=== PATIENT | female | born 1990 | race Caucasian/White ===

== ENCOUNTER 2025-06-05 13:07 | Outpatient (AMB) | payer BC, SELFPAY ==
--- NOTE | 2025-06-05 13:09 | MHC.OFFVIS ---
Vital Signs 06/05/25 13:13 Height 5 ft 1 in Weight 173 lb 6 oz BMI 32.8 BP 131/86 Blood Pressure Location Rt brachial Position Sitting Pulse 81 Pulse Source Pulse Oximeter Pulse Oximetry (%) 97 Oxygen Delivery Method Room Air Intake Visit Reasons: RIGHT HIP PAIN/BURSA Intake Note: Pain today 10/25 Colors Custodian Required: No Accompanied by: Spouse Allergies latex (LATEX) Allergy (Unknown, Verified 06/05/25 13:14) HIVES Sulfa (Sulfonamide Antibiotics) (SULFA (SULFONAMIDE ANTIBIOTICS)) Allergy (Unknown, Verified 06/05/25 13:14) NAUSEA/FATIGUE HPI Comments Details: The patient is a 34-year-old female presenting with chronic pelvic pain, which she localizes to the right lower quadrant and groin. The pain has been present since an emergency section in 2022. In January of this year, the patient underwent a diagnostic laparoscopy, during which a lesion was found and removed from her iliacus muscle. Pathology confirmed the lesion was endometriosis. The patient reports the surgery did not help her pain. The patient has been receiving ultrasound-guided steroid injections at [facility] for this pain. Her last injection was in November and provided relief for about a month and a half. She completed CT scans at [facility] [place] [facility] and US with [facility], these reports are not available for review today. Patient completed physical therapy, chiropractic manipulation, massage therapy, acupuncture, topical cannabis cream and TENS unit with mild to no pain relief. She is seeking a new provider due to PTSD triggers associated with the previous facility and difficulties with scheduling. Her medical history is significant for asthma, depression, fibromyalgia, PTSD from her and prior trauma, and POTS, which is managed by her PCP Current medications include desvenlafaxine and metoprolol. She is not currently or . Pain Description - Onset: The pain began in 2022 after an emergency . - Location: The pain is located in the right lower quadrant, described as superficial, and is in the groin and pelvic area but higher up. - Quality: The patient reports occasional burning pain. - Exacerbating Factors: Pain worsens when bending her torso over, during bowel movements, when feeling the need to have a bowel movement, and during her menses. - Associated Symptoms: The patient experiences occasional numbness and tingling when stretching or bending down. - Impact on Function: The pain affects her ability to perform activities such as carrying groceries. Pain Management - Analgesia: The patient has received steroid injections at [facility], with the last one in November providing relief for approximately 1.5 months. - Affect: The patient reports PTSD as a trigger related to a prior facility. - Activities of Daily Living: The pain interferes with her ability to carry groceries. - Adverse Effects: Not discussed. - Aberrant Drug Related Behaviors: None reported. [facility] Medical History (Updated 06/05/25 @ 14:13 by HENOK Hernández) Endometriosis Right hip pain POTS (postural orthostatic tachycardia syndrome) Fibromyalgia Depression Asthma Surgical History (Updated 06/05/25 @ 14:22 by HENOK Hernández) History of laparoscopy (~01/2025) H/O emergency section (~12/2022) Social History Alcohol intake: current Alcohol intake frequency: a few times a month Patient Tobacco Use Status: Never used Tobacco Substance Use Type: Marijuana Review of Systems Narrative - General: Reports fibromyalgia. - Musculoskeletal: Reports superficial pain in the right lower quadrant and pelvic region and non-severe upper back pain; denies pain in the hip joint with rotation or on the side of the hip. - Neurological: Reports occasional burning, numbness, or tingling, primarily with stretching or bending. - Gastrointestinal: Reports pain is worse with bowel movements and when feeling the urge for a bowel movement. - Genitourinary: Reports pain is worse during menses; denies being . - Psychiatric: Reports a history of depression and PTSD. - Cardiovascular: Reports POTS. Const All systems reviewed & are unremarkable except as noted in HPI and below Physical Exam Vital Signs: Last Vital Signs Pulse 81 06/05/25 13:13 BP 131/86 06/05/25 13:13 Pulse Ox 97 06/05/25 13:13 Oxygen Delivery Method Room Air 06/05/25 13:13 BMI result Body Mass Index 32.8 General: Appears afebrile. Alert and oriented. Mood and affect appropriate. Follows and participates in conversation appropriately. Respiratory effort is unlabored. No cough. Able to transition from sit to stand unassisted. Ambulates with bilaterally normal heel strike and toe off. GI Other: External hip rotation reproduces right pelvic area pain. No TTP in bilateral GTB areas. Wilber's test reproduces RLQ pain, not hip or low back or buttock pain. Inspection: Yes normal to inspection, No abdominal wall ecchymosis, No distended, Yes obesity, Yes scar and No visible herniation Palpation (GI): Soft to palpation, Tenderness to palpation present (GI) in the RLQ and No Carnett's sign positive Assessment & Plan Assessment & Plan (1) Right-sided pelvic pain: Code(s): R10.21 - Pelvic and perineal pain right side Category: Medical (2) Fibromyalgia: Code(s): M79.7 - Fibromyalgia Category: Medical (3) Chronic pain syndrome: Code(s): G89.4 - Chronic pain syndrome Category: Medical Plan Medical records and all imaging from [facility] will be requested and reviewed to gain a complete understanding of her condition and prior treatments. The patient will be contacted after the records have been reviewed. Discussed interventional pain management for chronic right hip and and right lower quadrant pain, including diagnostic vs therapeutic US guided injections. All questions and concerns have been answered and patient agreed with the treatment plan. Follow up for [facility] records/imaging review/procedure discussion and sooner as needed. Patient was informed and verbally consented to the use of an ambient scribe for clinic note documentation during this visit. Coding Level of Care Code New Pt Level 4 (80005) Diagnoses Right-sided pelvic pain R10.21 Fibromyalgia M79.7 Chronic pain syndrome G89.4
[2025-06-05 13:13] VITALS: BP 131/86; PULSE 81; O2SAT 97; BMI 32.8
--- OUTSIDE RECORDS SUMMARY | 2025-06-05 14:55 | XMS_ITS | Clinical Summary ---
Author Organization [facility] Address [address] [place] [address] Care Team Providers Care Police Reserves Commander Name Role Phone Unavailable Primary Care Provider Unavailabl e Immunizations Immunization Administration Dates Next Due DTP 09/25/1997, 4,03/31/1993,1992,1992 HIB (PRP-T) 01/05/1994, 3,01/28/1993,1992 Hep B (pedi) 09/08/1993,1992 IPV 03/31/1993,01/28/1993,1992 MMR 09/30/1996,01/05/1994 OPV, Trivalent (Admin Before 09/17/2015) 09/25/1997,03/30/1994 PPD/TST (Tuberculin Skin Test) 09/25/1997,1993 Varicella 11/24/1997 Social History Tobacco Use Types Packs/Day Years Used Date Smoking Tobacco: Never Assessed Comments Unknown Sex and Gender Information Value Date Recorded Sex Assigned at Not on file Legal Sex Female 10:19 PM EDT Gender Identity Not on file Sexual Orientation Not on file Plan of Treatment Health Maintenance Due Date Last Done Comments Hepatitis C Screening 1992 Hep B (3 of 3 - 3-dose series) 11/03/1993 09/08/1993, 1992 DTaP/Tdap/Td (6 - Tdap) 09/28/2003 09/25/18 98, 03/30/1994, 03/31/1993, Additional history exists Pap Smear 2008 COVID-19 Vaccine ( season) 2025 Influenza (#1) 2025 03/22/2018, 03/25/2016 Zoster (Shingrix) (1 of 2) 2042 11/24/1997 Hib Completed 01/05/1994, 03/18, 01/28/1993, Additional history exists Eye/Retina Exam Discontinued 03/18/1997, 04/18, 10/29/1995, Additional history exists PPD Discontinued 09/25/1997, 09/16, 09/08/1993, Additional history exists HPV Vaccine (No Doses Required) Completed Hep A Aged Out No longer eligi ble based on patient's age to complete this topic Meningococcal ACWY Aged Out No longer eligible based on patient's age to complete this topic Pneumococcal Aged Out No longer eligi ble based on patient's age to complete this topic Procedures * Due to [place] state law, this organization might not be sharing negative HIV tests. Procedure Name Priority Date/Time Associated Diagnosis Comments SKIN TEST; TUBERCULOSIS, INTRADERMAL 0.1ML 09/25/1997 12:00 AM EDT Routine Infant or Child Health Check from Last 3 Months or Most Recently Relevant to Health Maintenance
--- OUTSIDE RECORDS SUMMARY | 2025-06-05 14:55 | XMS_ITS | Clinical Summary ---
Author Organization [facility] Address [address] [place] [id number] Care Team Providers Care Programs Director Name Role Phone Unavailable Primary Care Provider Unavailabl e Allergies Active Allergy Reactions Criticality Noted Date Comments Aspirin Dermatitis,GI intolerance,Itchin g,Palpitations,Arcadio h,Shortness of breath High 12/05/2020 Other Reaction(s): Dizziness, Headaches, Mental Status Change, Musculoskeletal Pain Cat Hair Standardized Allergenic Extract 07/13/2015 Dog Hair Standardized Allergenic Extract 07/13/2015 Eggplant Anxiety,Dermatitis ,Diarrhea,GI intolerance,Hives, Itching,Palpitatio ns,Rash Low 12/05/1996 Other Reaction(s): Bronchospasm, Dizziness, Flushing, Headaches, Mental Status Change, Musculoskeletal Pain House Dust 07/13/2015 Latex, Natural Rubber Anaphylaxis,Anxiet y,Other (see comments),Hives,It mary High 12/05/1996 Other Reaction(s): Bronchospasm, Not available Other reaction(s): Not available Peanut Anaphylaxis,Anxiet y,Dermatitis,Diarr hea,GI intolerance,Hives, Itching,Other (see comments),Palpitat ions,Rash,Shortnes s of breath High 12/05/1996 Sesame Anaphylaxis,Anxiet y,Diarrhea,Hives,I tching,Palpitation s,Rash,Shortness of breath High 12/05/1996 Sulfa (Sulfonamide Antibiotics) Hives,Nausea And Vomiting 07/13/2015 Tree Nuts Anaphylaxis,Anxiet y,Diarrhea,Hives,I tching,Palpitation s,Rash,Shortness of breath High 12/05/1996 Also peanuts, eggplant Tree nuts, includes hickory Medications desvenlafaxine succinate ER (PRISTIQ) 100 mg 24 hr tablet TAKE 1 TABLET (100 MG) BY MOUTH AFTER BREAKFAST Active EPINEPHrine (EPIPEN) 0.3 mg/0.3 mL injection Inject 0.3 mg as directed. 7 Active fluticasone HFA (FLOVENT HFA) 110 mcg/actuation inhaler Inhale. 7 Active hydrOXYzine (ATARAX) 25 mg tablet Take 25 mg by mouth 2 (two) times a day as needed. 4 Active LORazepam (ATIVAN) 0.5 mg tablet Take 1 mg by mouth. 8 Active metoprolol succinate XL (TOPROL-XL) 100 mg 24 hr tablet Take 100 mg by mouth nightly. Active Family History Relation Status Comments Father Alive Mother Alive Social History Tobacco Use Types Packs/Day Years Used Date Smoking Tobacco: Never Smokeless Tobacco: Never Tobacco Cessation:Counseling Given: Not Answered Alcohol Use Standard Drinks/Week Comments Not Currently 0 (1 standard drink = 0.6 oz pur e alcohol) Humiliation, Afraid, Rape, and Kick questionnair e Answer Date Recorded Within the last year, have y ou been afraid of your partner or ex-partner? No 11/06/2024 Within the last year, have y ou been humiliated or emotionally abused in other ways by your partner or ex-partner? No Within the last year, have y ou been kicked, hit, slapped, or otherwise physically hurt by your partner or ex-partner? No 11/06/2024 Within the last year, have y ou been raped or forced to have any kind of sexual activity by your partner or ex-partner? No 11/06/2024 PHQ-2 Answer Date Recorded PHQ-2 Score 2 11/06/2024 Comments Unknown Sex and Gender Information Value Date Recorded Sex Assigned at Not on file Legal Sex Female 11:04 AM EST Gender Identity Not on file Sexual Orientation Not on file Last Filed Vital Signs Vital Sign Reading Time Taken Comments Blood Pressure 139/89 11/06/2024 2:10 PM EDT Pulse 116 11/06/2024 2:10 PM EDT Temperature - - Respiratory Rate - - Oxygen Saturation - - Inhaled Oxygen Concentration - - Weight 80.3 kg (177 lb) 11/06/2024 2:10 PM EDT Height 162.6 cm (5' 4 ) 11/06/2024 2:10 PM EDT Body Mass Index 30.38 11/06/2024 2:10 PM EDT Plan of Treatment Health Maintenance Due Date Last Done Comments HIV Screening 1992 HPV Vaccines (3 - 3-dose series) 02/28/2010 12/06/2009, 2009, 07/15/2009, Additional history exists Hepatitis C Screening 2010 Pneumococcal Vaccine: At-Risk and Pediatric Patients (0 to 49 Years) (2 of 2 - PCV) 03/25/2017 03/25/2016 Pap Smear 08/10/2017 08/10/2014 Cervical Cancer Screening 2022 HPV/Cotest 2022 COVID-19 Vaccine ( season) 2025 07/03/2024, 03/11/2023, 04/28/2022, Additional history exists Influenza Vaccine (#1) 2025 , 07/03/2024, 03/11/2023, Additional history exists DTaP,Tdap,and Td Vaccines (8 - Td or Tdap) 10/06/2032 10/06/2022, 12/30/2010, 12/30/2010, Additional history exists Zoster Vaccines (1 of 2) 2042 Hepatitis B Vaccines Completed 09/08/1993, 1992, 1992 MMR Vaccines Completed 09/30/1996, 12/17, 1993 Meningococcal Vaccine Completed 11/30/2010 Hepatitis A Vaccines Aged Out No long er eligible based on patient's age to complete this topic Insurance [facility] [place] [place] Address: [address] [place] [address]
--- OUTSIDE RECORDS SUMMARY | 2025-06-05 14:55 | XMS_ITS | Clinical Summary ---
Author Organization [facility] Address [address] [place] [address] Phone Care Team Providers Care Diabetic Educator Name Role Phone Maxim Avelar PA-C Primary Care Provider [phone] Allergies Active Allergy Reactions Criticality Noted Date Comments Aspirin Dermatitis,Dizziness , GI Upset,Headaches,Itchi ng,Mental Status Change,Musculoskeleta l Pain,Palpitations,Arcadio h,Shortness Of Breath High 12/05/2020 Eggplant Anxiety,Bronchospasm , Dermatitis,Diarrhea,D izziness,Flushing,GI Upset,Headaches,Hives ,Itching,Mental Status Change,Musculoskeleta l Pain,Palpitations,Arcadio h Low 12/05/1996 Latex Anaphylaxis,Anxiety, B ronchospasm,Headaches ,Hives,Itching,Mental Status Change,Musculoskeleta l Pain High 12/05/1996 Peanut Anaphylaxis,Anxiety, D ermatitis,Diarrhea,He adaches,Hives,Itching ,Mental Status Change,Musculoskeleta l Pain,Palpitations,Arcadio h,Shortness Of Breath High 12/05/1996 Sesame Anaphylaxis,Anxiety, D iarrhea,Hives,Itching ,Palpitations,Rash,Sh ortness Of Breath High 12/05/1996 Sulfa (Sulfonamide Antibiotics) Anxiety,Fatigue,GI Upset,Headaches,Light headedness,Mental Status Change,Musculoskeleta l Pain,Myalgia,Palpitat ions,Shortness Of Breath High 12/06/2007 Tree Nuts Anaphylaxis,Anxiety, D iarrhea,Hives,Itching ,Palpitations,Rash,Sh ortness Of Breath High 12/05/1996 Also peanuts, eggplant Medications acetaminophen (TYLENOL) 325 mg capsule Take 650 mg by mouth as needed. 3 Active albuterol 90 mcg/actuation inhaler 1 PUFFS INHALATION 4 TIMES A DAY,X30 DAYS,: NEEDED FOR WHEEZING 4 Active ascorbic acid, vitamin C, (VITAMIN C) 1000 MG tablet Take 1,000 mg by mouth daily. 8 Active EPINEPHrine 0.3 mg/0.3 mL auto-injector Inject into the muscle. 0 Active fluticasone propionate 113 mcg/actuation aebs prn 3 Active hydrOXYzine (ATARAX) 25 MG tablet Take 25 mg by mouth 2 (two) times a day as needed. Active LORazepam (ATIVAN) 0.5 MG tablet Take 1 mg by mouth as needed. 8 Active metoprolol succinate (TOPROL-XL) 100 MG 24 hr tablet Take 100 mg by mouth nightly at bedtime. at bedtime. 4 Active desvenlafaxine succinate (PRISTIQ) 100 MG 24 hr tablet Take 100 mg by mouth daily. 5 Active medroxyPROGEST ERone (DEPO-PROVERA) 150 mg/mL injection Inject 150 mg into the muscle every 3 (three) months. 5 Active levonorgestreL (LILETTA) 20.4 mcg/24 hr (8 yrs) 52 mg IUD 1 each by Intrauterine route. 3 Active prazosin (MINIPRESS) 2 MG capsule Take 2 mg by mouth nightly at bedtime. 5 Active clotrimazole (LOTRIMIN) 1 % cream 5 Active baclofen (LIORESAL) 20 MG tablet Take 20 mg by mouth 2 (two) times a day. 025 Discontin ued(No longer taking) Active Problems Problem Noted Date Diagnosed Date Fibromyalgia 11/26/2024 Depression 11/26/2024 PTSD (post-traumatic stress disorder) 11/26/2024 Palpitations 11/26/2024 Routine general medical exam ination at a health care facility 11/26/2024 Encounters Date Type Department Care Team Description 05/26/2025 Orders Only [facility] [address], [address] [place] [address] Maxim Avelar PA-C 05/18/2025 8:00 AM EST Office Visit [facility] [address] [place] [address] Maxim Avelar PA-C Right hip pain (Primary Dx) 04/14/2025 Telephone [facility]ly [facility] [address] [place] [address] Maxim Avelar PA-C Appointment 03/26/2025 2:56 PM EDT - 03/26/2025 11:59 PM EDT Hospital Encounter [facility] [address] [place] [address] Trini Bell NP Discharge Disposition: Home or Self Care from Last 3 Months Immunizations Immunization Administration Dates Next Due DTP 03/30/1994 DTaP 09/25/1997 OVwQ-Ceq-GDL 01/05/1994, 3,01/28/1993,12/01 HPV, unspecified formulation 2009 HPV,quadrivalent 12/06/2009,07/15/2009, 9 Hepatitis B 09/08/1993,1992,1992 IPV 03/30/1994 Influenza Quadrivalent MDCK Preservative Free IM 03/11/2023,04/28/2022,03/24/2020,03/22 Influenza Quadrivalent Prese rvative Free IM 04/04/2019,03/25/2016 Influenza Trivalent MDCK Pre servative Free IM 07/03/2024 MMR 09/30/1996,01/05/1994,1993 Meningococcal MCV4P 11/30/2010 PPD Test 06/28/2017,09/25/1997,09/08/1993 Pneumococcal polysaccharide PPSV23 03/25/2016 Polio - OPV 09/25/1997 Td (Adult),Absorbed,Preserva tive Free,Lf Unspecified 12/30/2010 Td (adult),2 Lf Tetanus Toxo id, PF, Adsorbed 11/21/2004 Tdap 10/06/2022,12/30/2010 Varicella 12/30/2010,11/24/1997 Family History Medical History Relation Comments Hypertension Father Heart disease Maternal Aunt 1 Heart disease Maternal Aunt 2 Breast cancer Maternal Grandmother in her 40's . pt tested neg for this gene Asthma Mother Diabetes type II Mother Hypertension Mother Migraines Mother Heart attack Paternal Grandfather Relation Status Comments Father Maternal Aunt 1 Maternal Aunt 2 Maternal Grandmother Mother Paternal Grandfather Social History Tobacco Use Types Packs/Day Years Used Date Smoking Tobacco: Never Smokeless Tobacco: Never Tobacco Cessation:Counseling Given: Not Answered Alcohol Use Standard Drinks/Week Comments Not Currently 0 (1 standard drink = 0.6 oz pur e alcohol) Child or Family Care Answer Date Record ed Do you have problems with on e of the following making it difficult for you to work, study, or receive health care? No 11/26/2024 Education Answer Date Recorded Are you interested in help w ith more adult education (for example, completing high school, GED, job training, learning the [place] language, technical skills, or developing parenting skills)? No 11/26/2024 Are you concerned about learning? Not on file 11/26/2024 No 11/26/2024 Yes 11/26/2024 Food Answer Date Recorded Within the past 6 months we worried whether our food would run out before we got money to buy more. Never True 11/26/2024 Within the past 6 months the food we bought just didn't last and we didn't have enough money to get more. Never True Residential Stability Answer Date Recor ded What is your housing situation today? I have toi sing 11/26/2024 How many times have you move d in the past 12 months? Zero (I did not move) 11/26/2024 Paying for Meds Answer Date Recorded Do you have trouble paying for medicines? No 11/26/2024 Paying Utility Bills Answer Date Record ed Do you have trouble paying your heating or elect ricity bill? No 11/26/2024 Transportation Answer Date Recorded Has the lack of transportati on kept you from medical appointments or from getting medications? No 11/26/2024 Unemployment Answer Date Recorded Are you currently unemployed or working on a part-time or temporary basis, and looking for work? No 11/26/2024 Digital Access Answer Date Recorded No 11/26/2024 Yes 11/26/2024 Do you have reliable internet access at home? Ye s 11/26/2024 Do you have a device (e.g., phone, tablet, computer) with a working camera? Yes 11/26/2024 Intimate Partner Violence Answer Date R ecorded Denied Basic Needs Not on file 11/26/2024 In the past 12 months have y ou been in a relationship with a person who hurts, threatens, or tries to control you? No 11/26/2024 Worried food would run out Not on file 11/26 In the past 12 months have y ou been in a relationship with a person who hurts, threatens, or tries to control you? No 11/26/2024 Comments Unknown Sex and Gender Information Value Date Recorded Sex Assigned at Female 10/09/2023 3:05 PM EDT Legal Sex Female 3:02 PM EDT Gender Identity Non-binary 10/09/2023 3:05 PM EDT Sexual Orientation Queer 10/09/2023 3: 05 PM EDT Primary [place] Affiliation Rupal Last Filed Vital Signs Vital Sign Reading Time Taken Comments Blood Pressure 112/68 05/18/2025 8:04 AM EST Pulse 84 05/18/2025 8:04 AM EST Temperature - - Respiratory Rate 20 05/18/2025 8:04 AM EST Oxygen Saturation 99% 05/18/2025 8:04 AM EST Inhaled Oxygen Concentration - - Weight 79.5 kg (175 lb 3.2 oz) 05/18/2025 8:04 A M EST Height 154.9 cm (5' 0.98 ) 05/18/2025 8:04 AM ES T Body Mass Index 33.12 05/18/2025 8:04 AM EST Plan of Treatment Upcoming Encounters Date Type Department Care Team (Late st Contact Info) Description 11/16/2025 2:40 PM EDT Office Visit [facility] [address] [place] [address] Maxim Avelar PA-C [address] [place] [address] [email or web address] Health Maintenance Due Date Last Done Comments HEPATITIS A VACCINES (1 of 2 - Risk 2-dose series) 09/28/2011 INFLUENZA VACCINE (#1) 2025 , 03/11/2023, 04/28/2022, Additional history exists COVID-19 VACCINE (2024- season) 2025 07/03/2024, 03/11/2023, 04/28/2022, Additional history exists DEPRESSION SCREENING 11/26/2025 11/26/2024 PAP SMEAR 07/02/2026 07/02/2023 Adult Td,Tdap Booster 10/06/2032 10/06/2022 , 12/30/2010, 12/30/2010, Additional history exists HIB VACCINES Completed 01/05/1994, 03/18, 01/28/1993, Additional history exists MENINGOCOCCAL VACCINES (ACWY) Completed 11/30/2010 PNEUMOCOCCAL VACCINES (0-49 years) Aged Out 03/25/2016 No longer eligible based on patient's age to complete this topic HEPATITIS C SCREENING Completed 06/13/2022 HIV ONE-TIME SCREENING (18-65 YEARS) Completed 06/13/2022 SMOKING STATUS SCREENING (Once After 26 Yrs) Completed 05/18/2025 MENINGOCOCCAL VACCINES (B) Aged Out N o longer eligible based on patient's age to complete this topic Medical Devices Not on file Procedures Procedure Name Priority Date/Time Associated Diagnosis Comments OUTSIDE MONITOR Routine 05/26/2025 12:08 PM EST TRYPTASE Routine 03/26/2025 3:02 PM EDT Flushing Pain in joint, multiple sites PAP TEST Routine 07/02/2023 12:58 PM EST OUTSIDE HIV Routine 06/13/2022 OUTSIDE HEPATITIS C VIRUS SCREENING Routine 06/13/2022 from Last 3 Months or Most Recently Relevant to Health Maintenance Results * Outside Monitor Report Only (05/26/2025 12:08 PM EST) Result [facility] Maxim Avelar PA-C CV CARDIAC SERVICES ORDERABLE S Final Result * Tryptase (03/26/2025 3:02 PM EDT) TRYPTASE 1.2 <11.5 ng/mL [facility] Blood 03/26/2025 3:02 PM EDT 03/26/2025 3:04 PM EDT Result [facility] Trini Bell NP LAB BLOOD ORDERABLES Fin al Result [facility] [address] [place] [address] * Pap Test (07/02/2023 12:58 PM EST) Result - External See Scanned Results Impressions Erica Colmenares, TURRET PRESS OPERATOR - 07/02/2023 12:58 PM EST NILM, HPV neg Result [facility] Historical Provider MD CYTOLOGY ORDERABLES Edite d Result - Final * Outside Hepatitis C Virus Screening (06/13/2022) Hepatitis C Screening - External Neg Result [facility] Historical Provider MD LAB BLOOD ORDERABLES Vianey l Result * OUTSIDE HIV TEST (06/13/2022) HIV - External Neg Historical Provider MD LAB BLOOD ORDERABLES Vianey l Result from Last 3 Months or Most Recently Relevant to Health Maintenance Insurance [facility] OUT OF STATE PPO [facility] OUT OF [facility] [place] [facility] OUT OF STATE [facility] OUT OF STATE [facility] OUT OF STATE [facility]PO [facility] OUT OF STATE PPO Care Teams Diabetic Educator Relationship Specialty Start Date End Date Maxim Avelar PA-C [address] [place] [address] [email or web address] PCP - General Physician Rn Telephonic 11/26/24 Additional Source Comments The information contained in this document represents components of the legal health record. It is not the complete legal health record.[facility]
--- OUTSIDE RECORDS SUMMARY | 2025-06-05 14:55 | XMS_ITS | Encounter Summary ---
Author Organization [facility] Address [address] [place] [address] Phone Care Team Providers Care Radio Commentator Name Role Phone Maxim Avelar PA-C Primary Care Provider [phone] Encounter Details Date Type Department Care Team (Late st Contact Info) Description 05/26/2025 Orders Only [facility] [address] [place] [address] Maxim Avelar PA-C [address] [place] [address] [email or web address] Social History Tobacco Use Types Packs/Day Years Used Date Smoking Tobacco: Never Smokeless Tobacco: Never Alcohol Use Standard Drinks/Week Comments Not Currently [...] high school, GED, job training, learning the [place] language, technical skills, or developing parenting skills)? [...] Queer 10/09/2023 3: 05 PM EDT Primary [place] Affiliation Rupal documented as of this encounter Plan of Treatment Upcoming Encounters Date Type Department Care Team (Late st Contact Info) Description 11/16/2025 2:40 PM EDT Office Visit [facility] [address] [place] [address] Maxim Avelar PA-C [address] [place] [address] documented as of this encounter Procedures Procedure Name Priority Date/Time Associated Diagnosis Comments OUTSIDE MONITOR Routine 05/26/2025 12:08 PM EST documented in this encounter Results * Outside Monitor Report Only (05/26/2025 12:08 PM EST) us Maxim Avelar PA-C CV CARDIAC SERVICES ORDERABLE S Final Result documented in this encounter Visit Diagnoses Not on filedocumented in this encounter Additional Health Concerns Assessment Noted Time PHQ-2 Depression Total Score: 2 11/27/19 25 11:11 AM EDT documented as of this encounter Care Teams Radio Commentator Relationship Specialty Start Date End Date Maxim Avelar PA-C [address] [place] [address] [email or web address] PCP - General Physician Parts Professional 11/26/24 documented as of this encounter Additional Source Comments The information contained in this document represents components of the legal health record. It is not the complete legal health record.[facility]
--- OUTSIDE RECORDS SUMMARY | 2025-06-05 14:55 | XMS_ITS ---
Author Name [facility] Organization Unknown Encounters Encounter Type Encounter Reason Primary Diagnosis Location Date Ambulatory Granulomatous disorder of the skin, subcu, unsp Granulomatous disorder of the skin, subcu, unsp [facility] 02/26/2025 Ambulatory Pelvic and perineal pain Pelvic and perineal pain [facility] 02/03/2025 Ambulatory Pelvic and perineal pain Pelvic and perineal pain [facility] 01/27/2025 Ambulatory no current diagnosis no current diagnosis [facility] 12/01/2024 Ambulatory Right lower quadrant pain Right lower quadrant pain [facility] 11/06/2024 Care Team Organization Name Specialty Phone Email Start Date End Da te [facility], [facility] 12/01/2024 [facility] 12/01/2024 [facility] 11/06/2024
--- OUTSIDE RECORDS SUMMARY | 2025-06-05 14:55 | XMS_ITS | Clinical Summary ---
Author Organization [facility] Address [address] [place] [address] Care Team Providers Care Power Saw Operator Name Role Phone Maxim Avelar Primary Care Provider [phone] Allergies Active Allergy Reactions Criticality Noted Date Comments Eggplant Itching,Nausea,Vomiting 01/26/2025 Latex Hives 01/26/2025 Peanut Anaphylaxis High 01/26/2025 Sesame Oil Anaphylaxis High 01/26/2025 Sulfa (Sulfonamide Antibiotics) Malaise,Nausea,Vomiting 01/26/2025 Tree Nut Anaphylaxis High 01/26/2025 Medications desvenlafaxine succinate (PRISTIQ) 100 mg 24 hr tablet Take 100 mg by mouth once a day. Active metoprolol succinate XL (TOPROL XL) 100 mg tablet Take 100 mg by mouth once a day. 5 Active baclofen (LIORESAL) 20 mg tablet Take 20 mg by mouth 2 times a day. 5 Active ALPRAZolam (XANAX) 0.5 mg tablet Take 0.5 mg by mouth daily as needed. 5 Active triamcinolone acetonide (KENALOG) 0.1% cream Apply topically to the affected area daily as needed. 5 Active EPINEPHrine (EPIPEN) 0.3 mg/0.3 mL injection syringe Inject into the outer thigh muscle as directed as needed. 5 Active hydrOXYzine HCL (ATARAX) 25 mg tablet Take 50 mg by mouth every night. 5 Active fluticasone propionate (FLOVENT HFA) 110 mcg inhaler Inhale by mouth 2 times a day as needed. Active prazosin (MINIPRESS) 1 mg capsule Take 1 mg by mouth nightly as needed. FOR PTSD NIGHTMARES Active polyethylene glycol 3350 (Miralax) 17 gram packet Take 1 packet (17 g total) by mouth daily as needed for constipation. Mix powder in 4 to 8 oz of water, juice, coffee, or tea prior to administration. 14 packet 01/27/2025 1:50 PM EDT Active Active Problems No known active problems Social History Tobacco Use Types Packs/Day Years Used Date Smoking Tobacco: Never Smokeless Tobacco: Never Tobacco Cessation:Counseling Given: Not Answered Alcohol Use Standard Drinks/Week Comments Not Currently 0 (1 standard drink = 0.6 oz pur e alcohol) Comments No Sex and Gender Information Value Date Recorded Sex Assigned at Female 01/27/2025 8:19 AM EDT Legal Sex Female 12:45 PM EDT Gender Identity Not on file Sexual Orientation Not on file Last Filed Vital Signs Vital Sign Reading Time Taken Comments Blood Pressure 120/80 01/27/2025 1:35 PM EDT Pulse 69 01/27/2025 1:35 PM EDT Temperature 36.4 C (97.5 F) 01/27/2025 1:35 PM EDT Respiratory Rate 17 01/27/2025 1:35 PM EDT Oxygen Saturation 96% 01/27/2025 1:35 PM EDT Inhaled Oxygen Concentration - - Weight 78.7 kg (173 lb 9.6 oz) 01/27/2025 8:40 A M EDT Height 162.6 cm (5' 4 ) 01/27/2025 8:40 AM EDT Body Mass Index 29.8 01/27/2025 8:40 AM EDT Plan of Treatment Health Maintenance Due Date Last Done Comments Cervical Cancer Screening 1992 HIV Screening 1992 HPV and Pap Smear 1992 Pap Smear 1992 Alcohol/Substance Use Screening 06/18/2024 Influenza Vaccine (#1) 2025 5, 03/11/2023, 04/28/2022, Additional history exists COVID-19 Vaccine ( season) 2025 07/03/2024, 03/11/2023, 04/28/2022, Additional history exists DTaP,Tdap,and Td Vaccines (8 - Td or Tdap) 10/06/2032 10/06/2022, 12/30/2010, 11/21/2004, Additional history exists Hepatitis B Vaccines Completed 09/08/1993, 1992, 1992 Varicella Vaccines Completed 12/30/2010, 11/24/1997 Pneumococcal Vaccine: Pediatric (0-5 Years) and At-Risk Patients (6-50 Years) Aged Out 03/25/2016 No longer eligible based on patient's age to complete this topic Insurance [employer] OUT OF STATE PPO Advance Directives Healthcare Agents on File Name Relationship Healthcare Agent Relationshi p Communication August Saenz Spouse Next of Kin [phone] (M obile) Care Teams Power Saw Operator Relationship Specialty Start Date End Date Maxim Avelar PA [address] [place] [address] PCP - General Emergency Medicine 01/27/25
== END 2025-06-05 14:05 | disposition home or self-care (01) ==
LOC: HO.PMC 13:08
PROVIDERS: PCP Physician Assistant Surgical; Visit Provider Nurse Practitioner Family
DX: R10.21 Pelvic and perineal pain right side (principal); M79.7 Fibromyalgia; G89.4 Chronic pain syndrome
CPT/HCPCS: 99204